=== PATIENT | male | born 1990 | race Caucasian/White ===

== ENCOUNTER 2023-10-02 09:42 | Emergency (ER) | payer BC ==
--- NOTE | 2023-10-02 10:45 | RAD REPORT ---
EXAM DESCRIPTION: CTChest Abdomen Pelvis W Cont - 10/02/2023 10:34 am CLINICAL HISTORY: blunt trauma COMPARISON: No comparisons TECHNIQUE: CT of the chest, abdomen, and pelvis was performed with IV contrast. All CT scans are performed using dose optimization technique as appropriate and may include automated exposure control or mA/KV adjustment according to patient size. FINDINGS: Thorax: Chest Wall: No abnormal mass Lungs: No acute abnormality. Pleura: No effusions or pneumothorax. Nancy/Mediastinum: No lymphadenopathy. Aorta/Pulmonary Arteries: Unremarkable Heart: Normal size. Abdomen/Pelvis: Liver: No acute abnormality or suspicious lesions. Biliary: No biliary ductal dilatation. Stomach: No significant focal abnormality. Duodenum: No significant focal abnormality. Pancreas: No significant abnormality. Spleen: No significant abnormality. Adrenal: No suspicious lesions. Kidney/ureter: No hydronephrosis. No renal calculi. Retroperitoneum: No retroperitoneal adenopathy. Vascular: No aneurysm. Bowel: No significant focal abnormality. Peritoneum: Prior right inguinal hernia repair. No free fluid. Small fat containing umbilical hernia. Bladder: Nonspecific circumferential bladder wall thickening. Reproductive: No adnexal masses. Bones: No acute fracture. Other: Stranding in the right lateral abdominal wall musculature and soft tissues. IMPRESSION: Stranding in the right lateral abdominal wall and abdominal wall musculature likely post traumatic. No underlying fractures or acute intrathoracic or intra- abdominal abnormality identified. Specifically, no liver or renal laceration identified. No free fluid in the pelvis. Nonspecific blad dwayne wall thickening could reflect infection or inflammation.
[2023-10-02 10:50] LABS: Absolute Basophils 0.1 K/uL (0-0.5); Absolute Eosinophils 0.3 K/uL (0-0.5); Absolute Monocytes 0.7 K/uL (0.1-1.3); Absolute Neutrophil 3.6 K/uL (1.8-8.0); Basophils % 1.1 % (0-1.3); Eosinophils % 4.3 % (0-4.4); Hematocrit 43.2 % (39.6-49.0); Hemoglobin 14.5 g/dL (13.6-17.9); Lymphocytes % 29.5 % (15.3-44.8); MCH 30.1 pg (27.0-35.0); MCHC 33.5 g/dL (32.0-36.0); MCV 89.9 fL (80-100); MPV 7.5 fL (7.6-11.3); Monocytes % 10.6 % (3.3-12.3); Neutrophils % 54.5 % (41.7-73.7); Nucleated Red Blood Cells % 0.1 % (0-0); Platelets 369 thou/uL (152-406); RBC Red Blood Cell Count 4.81 M/uL (4.33-5.43); Red Cell Distribution Width 13.8 % (12.1-15.2)
[2023-10-02 10:57] LABS: PT Prothrombin Time 10.4 SECONDS (9.5-12.5); Protime INR 0.94
[2023-10-02 11:04] LABS: Anion Gap 7.6 mEq/L (5.0-15.0); Potassium 3.6 mEq/L (3.5-5.1)
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
[2023-10-02 12:38] VITALS: BP 136/86; TEMP 97.1; O2SAT 100
== END 2023-10-02 11:35 | disposition home or self-care (01) ==
LOC: ER 09:42
DX: S30.1XXA Contusion of abdominal wall, initial encounter (principal); F17.210 Nicotine dependence, cigarettes, uncomplicated
CPT/HCPCS: 85025; 80048; 36415; 85610; 85730; 71260; 74177; 99285; Q9967